=== PATIENT | female | born 1935 | race Caucasian/White ===

== ENCOUNTER 2016-06-11 06:35 | Emergency (ER) | payer MEDICARE, OTHER ==
[~2016-06-11] VITALS: Wt 54.5 kg
[2016-06-11] MEDS ORDERED: ONDANSETRON 4 MG INJ IV STA (07:15)
--- NOTE | 2016-06-11 07:15 | ERA ---
ER Documentation Chief Complaint Date/Time DATE: 06/11/16 TIME: 07:06 Chief Complaint NAUSEA S/P HEAD INJURY FROM FALL 5 DAYS AGO . NO NEURO DEFICIT. A&OX3 HPI History is supplemented by the patient's son. 81-year-old female history of hypertension, anxiety and mild dementia presents to the ED via rescue ambulance for evaluation of head injury and nausea. Patient was in her usual health until May 24 when she had a mechanical fall for which she was hospitalized at [facility] for 5 days apparently pending placement. She was eventually placed in a assisted living facility here in [place] where she has been living. Last night at approximately 2:30 AM went to the bathroom, fell, hit her head and since then has felt nauseated. No vomiting or diarrhea. Denies headache, syncope or dizziness. No visual changes, focal weakness or numbness. No neck or back pain. No leg pain or swelling. No chest pain, shortness of breath or palpitations. Denies abdominal pain or back pain. No dysuria, polyuria, hematuria or flank pain. No recent URI symptoms, odynophagia, rhinorrhea or cough. Denies heat or cold intolerance. No anorexia or weight loss. Subjective fevers last night but no chills or night sweats. ROS All systems reviewed and are negative except as per history of present illness. Medications Home Meds Reported Medications Lisinopril* (Lisinopril*) 10 Mg Tablet, 10 MG PO DAILY, #30 TAB 06/11/16 Hydrocodone/Acetaminophen ([place] 5-325 Tablet) 1 Each Tablet, 1 EACH PO DAILY Y for PAIN, TAB 06/11/16 Clonazepam* (Clonazepam*) 1 Mg Tablet, 1 MG PO QHS Y for ANXIETY, TAB 06/11/16 Clonazepam* (Clonazepam*) 0.5 Mg Tablet, 0.5 MG PO BID Y for ANXIETY, TAB 06/11/16 Allergies Allergies: Coded Allergies: Penicillins (Verified Allergy, Severe, hives, 06/11/16) aspirin (Verified Allergy, Severe, hives, 06/11/16) PMhx/Soc Reviewed in chart. As per HPI. Recently relocated to [place] from [facility] History of Surgery: Yes (Left hip arthroplasty) Anesthesia Reaction: No Hx Neurological Disorder: No Hx Respiratory Disorders: No Hx Cardiac Disorders: Yes (Hypertension) Hx Psychiatric Problems: Yes (Anxiety) Hx Miscellaneous Medical Probl: No Hx Alcohol Use: No Hx Substance Use: No Hx Tobacco Use: No Smoking Status: Never smoker FmHx Father: Diabetes. No family history of sudden cardiac , stroke or subarachnoid hemorrhage Physical Exam Vitals Vital Signs Date Time Temp Pulse Resp B/P Pulse Ox O2 Delivery O2 Flow Rate FiO2 06/11/16 12:00 98.8 98 16 149/45 96 Room Air 06/11/16 09:25 98.8 82 22 168/77 96 Room Air 06/11/16 08:55 98.9 88 21 113/90 95 Room Air 06/11/16 06:47 98.8 95 20 193/91 98 Physical Exam Const: Alert, anxious, moderate distress. Head: Atraumatic Eyes: Pupils equal reactive to light, extraocular movements are intact. Normal Conjunctiva, no subconjunctival hemorrhage. No periorbital ecchymosis. ENT: Normal External Ears, Nose and Mouth. No hemotympanum. Negative moncada sign. Neck: Nontender. Full range of motion. No paraspinal muscle spasm or tenderness. Resp: Breath sounds are equal and clear to auscultation bilaterally Cardio: Regular rate and rhythm, no murmurs. No chest wall tenderness Abd: Soft, non tender, non distended. Normal bowel sounds. No rebound or guarding. No masses or abnormal pulsations. Skin: No petechiae or rashes Back: No midline or flank tenderness Ext: No cyanosis, or edema. Pulses 4+ in all extremities. Neur: Awake and alert. Cranial nerves II through XII are grossly intact. Normal speech. Motor and sensory equal bilaterally. No pronator drift. Psych: Appears anxious but not depressed. Cooperative. Result Diagram: 06/11/1615 06/11/16 0715 Results 24 hrs Laboratory Tests Test 06/11/16 07:15 06/11/16 10:00 White Blood Count 18.110^3/ul Red Blood Count 4.0510^6/ul Hemoglobin 12.9g/dl Hematocrit 38.9% Mean Corpuscular Volume 96.0fl Mean Corpuscular Hemoglobin 31.9pg Mean Corpuscular Hemoglobin Concent 33.2g/dl Red Cell Distribution Width 12.8% Platelet Count 98348^3/UL Mean Platelet Volume 9.3fl Neutrophils % 88.3% Lymphocytes % 4.7% Monocytes % 6.1% Eosinophils % 0.2% Basophils % 0.3% Nucleated Red Blood Cells % 0.0/100WBC Neutrophils # 16.010^3/ul Lymphocytes # 0.910^3/ul Monocytes # 1.110^3/ul Eosinophils # 0.010^3/ul Basophils # 0.110^3/ul Nucleated Red Blood Cells # 0.010^3/ul Sodium Level 137mmol/L Potassium Level 3.8mmol/L Chloride Level 100mmol/L Carbon Dioxide Level 27mmol/L Anion Gap 14 Blood Urea Nitrogen 17mg/dl Creatinine 0.77mg/dl Glucose Level 113mg/dl Calcium Level 9.3mg/dl Total Bilirubin 0.4mg/dl Direct Bilirubin 0.00mg/dl Indirect Bilirubin 0.4mg/dl Aspartate Amino Transf (AST/SGOT) 32IU/L Alanine Aminotransferase (ALT/SGPT) 25IU/L Alkaline Phosphatase 92IU/L Troponin I 0.012ng/ml Total Protein 7.1g/dl Albumin 3.8g/dl Globulin 3.30g/dl Albumin/Globulin Ratio 1.15 Lipase 20U/L Urine Color LT. YELLOW Urine Clarity CLEAR Urine pH 5.5 Urine Specific [place] 1.015 Urine Ketones 15 Urine Nitrite NEGATIVE Urine Bilirubin NEGATIVE Urine Urobilinogen 0.2 E.U./dL Urine Leukocyte Esterase NEGATIVE Urine Microscopic RBC 5-10/HPF Urine Microscopic WBC 0-2/HPF Urine Squamous Epithelial Cells OCCASIONAL Urine Bacteria OCCASIONAL Urine Hemoglobin 2+ Urine Glucose NEGATIVE% Urine Total Protein NEGATIVE Current Medications Medications (Trade) Dose Ordered Sig/Jessica Route PRN Reason Start Time Stop Time Status Last Admin Dose Admin Ondansetron HCl (Zofran Inj) 4 mg ONCE STAT IV 06/11/16 07:15 06/11/16 07:17 DC 06/11/16 08:20 Acetaminophen (Tylenol Tab) 650 mg ONCE ONCE PO 06/11/16 09:00 06/11/16 09:01 DC 06/11/16 09:02 Clonazepam (Klonopin) 0.5 mg ONCE ONCE PO 06/11/16 12:00 06/11/16 12:01 DC 06/11/16 12:08 EKG: Time: 06:56. Sinus rhythm. Ventricular rate 93, normal CO and QRS intervals. No acute ST segment elevation or depression. No axis deviation or ectopy. EP Impression: Normal EKG IMAGING: PROCEDURE: CT BRAIN WITHOUT CONTRAST CLINICAL INDICATION: 81-year-old female with syncope. TECHNIQUE: The study was performed utilizing [employer] VCT 64-slice CT scanner. Direct axial sections were obtained from the foramen magnum to the vertex without the use of intravenous contrast material. Sagittal and coronal reformations were obtained. Sagittal and coronal reformations were obtained. One or more the following dose reduction techniques were utilized: automated exposure control, adjustment of the mA and/or kV according to patient's size or use of iterative reconstruction technique. The images were viewed on a PACS workstation. CTD/vol = 44.0 mGy; Total Exam DLP = 720.2 mGy-cm. COMPARISON: None. FINDINGS: There is moderate degree of diffuse cortical and central atrophy with compensatory ventricular enlargement. There is no evidence for mass effect or midline shift. There are periventricular and deep white matter areas of decreased density consistent with microangiopathic ischemic changes. There is no evidence for acute intra or extra-axial blood. Calcifications are seen within the intracranial carotid arteries bilaterally. The bony calvarium is intact. The partially visualized paranasal sinuses and mastoid air cells are without significant abnormal soft tissue. IMPRESSION: 1. Moderate diffuse atrophy. 2. Microangiopathic ischemic changes. 3. Vascular calcifications. .Javed Barakat MD, MD Date Time Electronically viewed and signed by .Javed Barakat MD, MD on 06/11/2016 07:48 .M/ PROCEDURE: CHEST - 1 VIEW CLINICAL INDICATION: 81-year-old female with chest pain and syncope. TECHNIQUE: A single frontal AP semi-erect portable view of the chest was performed. The images were reviewed on a PACS workstation. COMPARISON: None. FINDINGS: The cardiomediastinal silhouette is within normal limits. The descending thoracic aorta is ectatic. Chronic lung changes are present. There is no evidence for an infiltrate. There is no evidence for congestive heart failure. There is no evidence for pneumothorax. Degenerative changes are seen within the left glenohumeral joint. IMPRESSION: 1. Ectatic descending thoracic aorta. 2. Chronic lung changes. 3. Degenerative changes left glenohumeral joint. .Javed Barakat MD, MD Date Time Electronically viewed and signed by .Javed Barakat MD, on 06/11/2016 07:43 .M/ Procedures/MDM DOCUMENTS REVIEWED: ED nurse, no prior records available MEDICAL DECISION MAKIN-year-old female history of hypertension, anxiety and mild dementia presents to the ED via rescue ambulance for evaluation of head injury and nausea. No focal neurologic deficit or signs of CVA/TIA. No CT evidence of acute infarct, bleed, mass or hydrocephalus. An occult dysrhythmia is possible but EKG is normal. No chest pain, shortness of breath or symptoms of acute coronary syndrome. Pulmonary embolism is unlikely. Abdominal exam is benign and occult process including but not limited to abdominal aortic aneurysm and occult malignancy is unlikely but not ruled out. Leukocytosis but no signs of an occult infectious process or criteria for systemic inflammatory response syndrome or sepsis. Presentation consistent with mechanical fall and closed head injury without LOC. Increasing fall risk due to dementia and benzodiazepine use. Stable for discharge with precautionary instructions and outpatient followup as counseled. Counseled patient and son regarding diagnosis, diagnostic results, plan for discharge and need for outpatient followup. Departure Diagnosis: Primary Impression: Head injury, acute, without loss of consciousness Qualified Code: S09.90XA - Head injury, acute, without loss of consciousness, initial encounter Additional Impressions: Mild nausea Essential hypertension Anxiety disorder Qualified Code: F41.9 - Anxiety disorder, unspecified type Dementia Qualified Code: F03.90 - Dementia without behavioral disturbance, unspecified dementia type Condition: YUSEF Ratliff MD Jun 11, 2016 07:15 Qualified Code: F41.9 - Anxiety disorder, unspecified type Dementia Qualified Code: F03.90 - Dementia without behavioral disturbance, unspecified dementia type Condition: YUSEF Ratliff MD Jun 11, 2016 07:15
--- NOTE | 2016-06-11 07:43 | RADRPT ---
PROCEDURE: CHEST - 1 VIEW CLINICAL INDICATION: 81-year-old female with chest pain and syncope. TECHNIQUE: A single frontal AP semi-erect portable view of the chest was performed. The images we re reviewed on a PACS workstation. COMPARISON: None. FINDINGS: The cardiomediastinal silhouette is within normal limits. The descending thoracic aorta is ectatic. Chronic lung changes are present. There is no evidence for an infiltrate. There is no evidence f or congestive heart failure. There is no evidence for pneumothorax. Degenerative changes are seen wi thin the left glenohumeral joint. IMPRESSION: 1. Ectatic descending thoracic aorta. 2. Chronic lung changes. 3. Degenerative changes left glenohumeral joint. .Javed Barakat MD, Date Time Electronically viewed and signed by .Javed Barakat MD, on 06/11/2016 07:43 .M/
--- NOTE | 2016-06-11 07:49 | RADRPT ---
PROCEDURE: CT BRAIN WITHOUT CONTRAST CLINICAL INDICATION: 81-year-old female with syncope. TECHNIQUE: The study was performed utilizing [employer] VCT 64-slice CT scanner. Direct axial sections were obtained from the foramen magnum to the vertex without the use of intravenous contrast material. Sagittal and coronal reformations were obtained. Sagittal and coronal reformations were obtained. One or more the following dose reduction techniques were utilized: automated exposure cont rol, adjustment of the mA and/or kV according to patient's size or use of iterative reconstruction t echnique. The images were viewed on a PACS workstation. CTD/vol = 44.0 mGy; Total Exam DLP = 720.2 mGy-cm. COMPARISON: None. FINDINGS: There is moderate degree of diffuse cortical and central atrophy with compensatory ventricular enlar gement. There is no evidence for mass effect or midline shift. There are periventricular and deep white matter areas of decreased density consistent with microangiopathic ischemic changes. There is no evidence for acute intra or extra-axial blood. Calcifications are seen within the intracranial c arotid arteries bilaterally. The bony calvarium is intact. The partially visualized paranasal sinuse s and mastoid air cells are without significant abnormal soft tissue. IMPRESSION: 1. Moderate diffuse atrophy. 2. Microangiopathic ischemic changes. 3. Vascular calcifications. .Javed Barakat MD, Date Time Electronically viewed and signed by .Javed Barakat MD, on 06/11/2016 07:48 .M/
[2016-06-11 07:52] LABS: ADD SCAN DIFF NO
[2016-06-11 07:54] LABS: BASOPHIL # 0.1 10^3/ul (0.0-0.1); BASOPHILS % 0.3 % (0.0-2.0); EOSINOPHILS % 0.2 % (0.0-7.0); HEMATOCRIT 38.9 % (37.0-47.0); HEMOGLOBIN 12.9 g/dl (12.0-16.0); LYMPHOCYTES # 0.9 10^3/ul (0.8-2.9); LYMPHOCYTES % 4.7 % (15.0-51.0); MEAN CORPUSCULAR HEMOGLOBIN 31.9 pg (29.0-33.0); MEAN CORPUSCULAR HGB CONC 33.2 g/dl (32.0-37.0); MEAN PLATELET VOLUME 9.3 fl (7.4-10.4); MONOCYTE # 1.1 10^3/ul (0.3-0.9); MONOCYTES % 6.1 % (0.0-11.0); NEUTROPHILS % 88.3 % (39.0-77.0); PLATELET COUNT 212 10^3/UL (140-415); RED BLOOD COUNT 4.05 10^6/ul (4.20-5.40); RED CELL DISTRIBUTION WIDTH 12.8 % (11.5-14.5); WHITE BLOOD COUNT 18.1 10^3/ul (4.8-10.8)
[2016-06-11 08:08] LABS: ALBUMIN 3.8 g/dl (3.3-4.9); POTASSIUM 3.8 mmol/L (3.5-5.1)
[2016-06-11 08:11] LABS: ALBUMIN/GLOBULIN RATIO 1.15; BILIRUBIN,INDIRECT 0.4 mg/dl (0-1.1); BILIRUBIN,TOTAL 0.4 mg/dl (0.2-1.3); CALCIUM 9.3 mg/dl (8.4-10.2); CREATININE 0.77 mg/dl (0.44-1.00); TOTAL PROTEIN 7.1 g/dl (6.1-8.1)
[2016-06-11 08:21] LABS: TROPONIN-I 0.012 ng/ml (0.00-0.12)
[2016-06-11] MEDS ORDERED: ACETAMINOPHEN 325 MG TAB PO ONE (09:00)
[2016-06-11 11:52] LABS: ADD UMIC YES; URINE BILIRUBIN (Dip) NEGATIVE (NEGATIVE); URINE BLOOD (Dip) 2+ (NEGATIVE); URINE COLOR LT. YELLOW (YELLOW); URINE GLUCOSE (Dip) NEGATIVE (NEGATIVE); URINE KETONES (Dip) 15 (NEGATIVE); URINE LEUKOCYTE ESTERASE (Dip) NEGATIVE (NEGATIVE); URINE NITRITE (Dip) NEGATIVE (NEGATIVE); URINE TOTAL PROTEIN (Dip) NEGATIVE (NEGATIVE); URINE UROBILINOGEN (Dip) 0.2 E.U./dL (0.1-1.0)
[2016-06-11] MEDS ORDERED: CLON0.5T4 PO (11:57)
[2016-06-11] MEDS ORDERED: CLON1TAB3 PO (11:58)
[2016-06-11] MEDS ORDERED: LISI10TA2 PO (11:59)
[2016-06-11] MEDS ORDERED: HYDR-906 PO (11:59)
[2016-06-11 12:00] VITALS: BP 149/45; PULSE 98; RESP 16; TEMP 98.8
[2016-06-11] MEDS ORDERED: clonAZEPAM 0.5 MG TAB PO ONE (12:00)
[2016-06-11 12:28] LABS: BACTERIA,URINE OCCASIONAL; SQUAMOUS EPITHELIAL CELL,UR OCCASIONAL
== END 2016-06-11 13:13 | disposition home or self-care (01) ==
LOC: E/R 06:35
DX: S09.90XA Unspecified injury of head, initial encounter (principal); I10 Essential (primary) hypertension; F41.9 Anxiety disorder, unspecified; F03.90 Unspecified dementia, unspecified severity, without behavioral disturbance, psychotic disturbance, mood disturbance, and anxiety; R55 Syncope and collapse; W18.09XA Striking against other object with subsequent fall, initial encounter; Y92.002 Bathroom of unspecified non-institutional (private) residence as the place of occurrence of the external cause
CPT/HCPCS: 36415; 70450; 71010; 80053; 81001; 83690; 84484; 85025; 93005; 96374; 99285; J2405; 81003